=== PATIENT | male | born 1965 | race Caucasian/White ===

== ENCOUNTER → 2017-03-22 | Outpatient (CLI) | payer OTHER ==
[~2017-03-22] VITALS: Ht 177.8 cm; Wt 124.7 kg
[~2017-03-22] MED LIST: CARAFATE1 GM/10 ML PO; FISH OIL 1,001000 M2 PO; LOPRESSOR50 PO; LOSARTAN-HCTZ1 EAC3 PO; OMEPRAZOLE40 MG PO; PRILOSEC 20 MG20 MG PO; PROAIR HFA8.5 GM INH; ZOCOR PO; ZOCOR20 MG PO
--- NOTE | ~2017-03-22 | S ---
[facility] [place] [place] [address] SURGICAL PATH RPT PROCEDURE Name: SAJI FAN Mya AVILA Room #: REG [facility].#: [id number] Admission: 03/22/17 Date of : 61 Discharge: Report #: [id number] Path Case #: [id number] PATHOLOGY REPORT COLLECTION DATE: 03/22/2017 RECEIVED DATE: 03/22/2017 SUBMITTING PHYS: Dr. Zia Marcos OTHER PHYS: SPECIMEN(S) RECEIVED: A.Distal esophagus * * * * * * * * * * * * FINAL DIAGNOSIS: Gastroesophageal mucosa, distal esophagus, endoscopic biopsy: - Gastric mucosa with moderate chronic inflammation. - Squamous mucosa with mild esophagitis. - Negative for intestinal metaplasia or dysplasia. (IUV:mgr; 03/25/2017) PATHOLOGIST: Kaya Maynard M.D. REPORT ELECTRONICALLY SIGNED BY: Kaya Maynard M.D. DATE/TIME: 03/25/2017 16:42 * * * * * * * * * * * * GROSS PATHOLOGY: Received in formalin labeled "Saji Bernalmarisachidi AVILA, biopsy of distal esophagus," are two segments of aguiar soft tissue measuring 0.5 x 0.4 x 0.1 cm in aggregate dimensions and ranging from 0.3 to 0.4 cm in maximum dimension. The specimen is submitted entirely in cassette A1. (CAA; 03/23/2017) CLINICAL HISTORY: Screening for colon, dysphagia, R/O Posadas's INITIAL CPT CODE(S): A; 23381 Professional services performed by [facility] at [facility] [address] [place] [address] Technical services performed by [facility] at [address] [place] [id number]. [facility] [address] [place] [address] SURGICAL PATH RPT PROCEDURE Name: SAJI FAN III Room #: ZAKIA [facility]#: [id number] Admission: 03/22/17 Date of : 61 Discharge: Report #: [id number] Path Case #: [id number] [facility] [address] [address] PHONE: [phone] DIRECTOR: Alberto Francois M.D. * * * END OF REPORT * * *
--- NOTE | ~2017-03-22 | P ---
[facility] [place] [place] [address] PROCEDURE REPORT Name: FELIX FAN III Room #: REG [facility]#: [id number] Admission: 03/22/17 Attend Phys: Zia Gallagher Discharge: Date of : 61 Report #: [id number] THIS REPORT FOR: //name// CC: Zia Jeffrey MD DATE OF PROCEDURE: 03/22/2017. PROCEDURE PERFORMED: Upper endoscopy with biopsies and esophageal dilation. HISTORY OF PRESENT ILLNESS: The patient is a 51-year-old male with a history of dysphagia and gastroesophageal reflux disease. Plan is for upper endoscopy. DESCRIPTION OF PROCEDURE: The risks and benefits of the procedure were explained to the patient, those risks including but not limited to bleeding, perforation, the risk of sedation. He understood these risks and gave informed consent. Sedation was given using propofol per anesthesia. Next, using a standard Getuin upper endoscope, the scope was placed in the patient's mouth and advanced under direct vision through the esophagus, stomach and into the second portion of the duodenum. The upper and mid esophagus were normal in appearance. In the distal esophagus, a small pink mucosal tongue was noted. Biopsies were obtained to rule out the possibility of Posadas's esophagus and mild Schatzki's ring was also noted. Overall, the gastric mucosa was normal. The pylorus was normal and patent. The duodenal bulb, first and second portion were all normal. The scope was then brought back up into the patient's stomach and a Savary guidewire was inserted through the scope, leaving the guidewire in place as the scope was then withdrawn. Next, a 48-Albanian Savary dilation of the esophagus was performed without difficulty. The wire and dilator removed. The scope was reintroduced into the patient's stomach. There was no evidence of mucosal tear after dilation. The scope was then withdrawn and the procedure terminated. The patient tolerated the procedure well. IMPRESSION: 1. Mild Schatzki's ring. 2. 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 3. Otherwise, normal upper endoscopy. RECOMMENDATIONS: 1. Await biopsy results. 2. Observe post-status post-dilation. 3. Continue daily PPI therapy. [facility] [address] [place] [address] PROCEDURE REPORT Name: FELIX FAN [facility] Room #: [facility]#: [id number] Admission: 03/22/17 Attend Phys: Zia Gallagher Discharge: Date of : 61 Report #: [id number] Thank you for allowing me to participate in his care. By: [id number] Zia Marcos MD /nt
--- NOTE | ~2017-03-22 | P ---
[facility] [place] [address] [place] [address] PROCEDURE REPORT Name: FELIX FAN III Room #: REG [facility]#: [id number] Admission: 03/22/17 Attend Phys: Zia Gallagher Discharge: Date of : 61 Report #: [id number] THIS REPORT FOR: //name// CC: Zia Jeffrey MD DATE OF SERVICE: 03/22/2017. PROCEDURE PERFORMED: Colonoscopy. HISTORY OF PRESENT ILLNESS: The patient is a 51-year-old male who presents today for screening colonoscopy. Denies any symptoms. No family history of colon cancer. DESCRIPTION OF PROCEDURE: The risks and benefits of the procedure were explained to the patient, those risks including but not limited to bleeding, perforation, the risk of sedation. He understood these risks and gave informed consent. Sedation was given using propofol per anesthesia. Next, a digital rectal exam was initially performed, which was normal. Next, using a standard Fujinon colonoscope, the scope was placed in the patient's anus and advanced under direct vision to the cecum. The overall prep was excellent. The cecum and ileocecal valve were normal in appearance. Ascending, transverse and descending colon were normal. A few scattered diverticula were noted in the sigmoid colon, no evidence of inflammation, otherwise normal. The rectal mucosa was normal. On retroflexion, no abnormalities were noted. Scope was then withdrawn and the procedure terminated. The patient tolerated the procedure well. IMPRESSION: 1. Mild sigmoid diverticulosis. 2. Otherwise, normal colonoscopy. RECOMMENDATIONS: Repeat colonoscopy in 10 years. Thank you for allowing me to participate in his care. By: [id number] Zia Marcos MD /nt
== END | disposition home or self-care (01) ==
LOC: GI 07:58
DX: Z12.11 Encounter for screening for malignant neoplasm of colon (principal); K57.30 Diverticulosis of large intestine without perforation or abscess without bleeding; K22.2 Esophageal obstruction; I10 Essential (primary) hypertension; K21.9 Gastro-esophageal reflux disease without esophagitis; G47.33 Obstructive sleep apnea (adult) (pediatric); Z87.891 Personal history of nicotine dependence; Z88.8 Allergy status to other drugs, medicaments and biological substances; Z79.899 Other long term (current) drug therapy
CPT/HCPCS: 62110; 62900